=== PATIENT | male | born 1940 | race Caucasian/White ===

== ENCOUNTER 2021-03-10 08:25 | Observation (INO) | payer MEDICARE ==
[2021-03-08 15:41] VITALS: BMI 25.7
[2021-03-10] MEDS ORDERED: Fentanyl 250 MCG/5 ML VIAL ONE (10:22)
[2021-03-10] MEDS ORDERED: Thrombin 5000 UNITS/5 ML VIAL ONE (10:32)
[2021-03-10] MEDS ORDERED: PROPOFOL 200 MG/20 ML VIAL ONE (11:13)
[2021-03-10] MEDS ORDERED: Dexamethasone 20 MG/5 ML VIAL ONE (11:13)
[2021-03-10] MEDS ORDERED: Lidocaine 1% PF 5 ML VIAL ONE (11:13)
[2021-03-10] MEDS ORDERED: Glycopyrrolate 0.2 MG/ML 5 ML SYRINGE ONE (11:13)
[2021-03-10] MEDS ORDERED: Rocuronium Bromide 10 MG/ML (10ML VIAL) ONE (11:13)
[2021-03-10] MEDS ORDERED: Ondansetron PF 4 MG/2 ML Vial ONE (11:13)
[2021-03-10] MEDS ORDERED: Promethazine HCl 25 MG/ML VIAL IVPB PRN (12:56)
[2021-03-10] MEDS ORDERED: Promethazine HCl 25 MG/ML VIAL IM PRN (12:56)
[2021-03-10] MEDS ORDERED: Ondansetron HCl/PF 4 MG/2 ML Vial IVP PRN (12:56)
[2021-03-10] MEDS ORDERED: SUGAMMADEX SODIUM 200 MG/2 ML VIAL ONE (13:24)
[2021-03-10] MEDS ORDERED: Acetaminophen/Codeine 30-300mg Tablet PO PRN (13:40)
[2021-03-10] MEDS ORDERED: tiZANidine HCl 4 MG TAB PO PRN (13:40)
[2021-03-10] MEDS ORDERED: Acetaminophen 325 MG TAB PO PRN (13:40)
[2021-03-10] MEDS ORDERED: Ondansetron PF 4 MG/2 ML Vial IVP PRN (13:40)
[2021-03-10] MEDS ORDERED: traMADol HCl 50 MG TAB PO PRN (13:40)
[2021-03-10] MEDS ORDERED: hydrALAZINE 20 MG/ML VIAL SLOW IVP PRN (13:43)
[2021-03-10] MEDS ORDERED: Morphine 4 MG/ML VIAL SLOW IVP PRN (13:55)
[2021-03-10] MEDS ORDERED: Fentanyl 100 MCG/2 ML VIAL ONE (14:03)
[2021-03-10] MEDS: Sodium Chloride 0.9% 1,000 ML IV SCH ×2 (17:47→21:13)
[2021-03-10] MEDS ORDERED: Atorvastatin Calcium 10 MG TAB PO SCH (21:00)
[2021-03-10] MEDS: HYDROcodone/Acetaminophen 7.5/325 mg Tablet PO PRN (21:13)
[2021-03-10] MEDS: Trospium 20 MG TAB PO SCH (21:13)
[2021-03-10] MEDS: ceFAZolin Sodium/D5W 2 GM in Premix Bag 1 BAG IVPB SCH (21:13)
[2021-03-11] MEDS: ceFAZolin Sodium/D5W 2 GM in Premix Bag 1 BAG IVPB SCH (04:55)
[2021-03-11 08:22] VITALS: BP 165/73; TEMP 97.8
[2021-03-11] MEDS: Trospium 20 MG TAB PO SCH (08:59)
[2021-03-11] MEDS ORDERED: PARoxetine 20 MG TAB PO SCH (09:00)
[2021-03-11] MEDS ORDERED: Losartan 25 MG TAB PO SCH (09:00)
[2021-03-11] MEDS ORDERED: Allopurinol 300 MG TAB PO SCH (09:00)
[2021-03-11] MEDS: Sodium Chloride 0.9% 1,000 ML IV SCH (11:01)
[2021-03-11] MEDS: HYDROcodone/Acetaminophen 7.5/325 mg Tablet PO PRN (11:24)
== END 2021-03-11 11:58 | disposition home or self-care (01) ==
LOC: SDC 08:25 → SURG B 13:44
PROVIDERS: ADMIT Surgery; ATTEND Surgery
PROC: 01NB0ZZ Release Lumbar Nerve, Open Approach (ICD-10-PCS; principal; 2021-03-10)
DX: M48.062 Spinal stenosis, lumbar region with neurogenic claudication (principal); M54.16 Radiculopathy, lumbar region; Z90.79 Acquired absence of other genital organ(s); Z96.652 Presence of left artificial knee joint; Z98.890 Other specified postprocedural states; Z79.899 Other long term (current) drug therapy
CPT/HCPCS: 76000; 96374; 96376; G0378; J0690; J1100; J2405; J2704; J3010; J3370; J7050